=== PATIENT | female | born 1980 ===

== ENCOUNTER 2017-09-26 07:35 | Emergency (ER) | payer OTHER ==
[2017-09-26 07:40] VITALS: BP 117/74; PULSE 63; RESP 20; TEMP 97.9; O2SAT 98
--- NOTE | 2017-09-26 08:15 | C.PDOC ---
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 Patient notes of bleeding and pain. Denies leg pain, weakness or numbness. Time Seen by Provider: 09/26/17 07:46 Chief Complaint (Nursing): Lower Extremity Problem/Injury History Per: Patient History/Exam Limitations: no limitations Onset/Duration Of Symptoms: Sudden Onset (2hrs [employer] GR[employer]ER) Past Medical History Reviewed: Historical Data, Nursing Documentation, Vital Signs Vital Signs: Last Vital Signs Temp 97.9 F 09/26/17 07:37 Pulse 63 09/26/17 07:37 Resp 20 09/26/17 07:37 BP 117/74 09/26/17 07:37 Pulse Ox 98 09/26/17 08:36 Family History: States: No Known Family Hx - Social History Hx Tobacco Use: No Hx Alcohol Use: No Hx Substance Use: No - Immunization History Hx Tetanus Toxoid Vaccination: Yes (UNSURE ?2008) Hx Influenza Vaccination: No Hx Pneumococcal Vaccination: Yes Review Of Systems Except As Marked, All Systems Reviewed And Found Negative. Musculoskeletal: Positive for: Other ((+) Left great toe pain and bleeding.). Negative for: Leg Pain Neurological: Negative for: Weakness, Numbness Physical Exam - Physical Exam Appears: Non-toxic, No Acute Distress Skin: Warm, Dry Head: Atraumatic, Normacephalic Eye(s): bilateral: Normal Inspection Extremity: Normal ROM, No Calf Tenderness, No Deformity, No Swelling, Other ((+ ) Left Great Toe - Dry blood to the nail margin. Nail intact. Tenderness to distal great phalanx.) Neurological/Psych: Oriented x3, Normal Speech, Normal Motor Gait: Steady ED Course And Treatment O2 Sat by Pulse Oximetry: 98 (RA) Pulse Ox Interpretation: Normal - Other Rad X-Ray - Left Great Toe X-Ray: Interpreted by Me, Viewed By Me Interpretation: (-) Fractures. Dislocations. Medical Decision Making Medical Decision Making: PLAN: * X-Ray - Left Great Toe * Motrin PO The patient is ambulatory without assistance and steady gait. Will discharge home. Disposition - Disposition Referrals: [facility] [Outside] Podiatry Clinic [Outside] Disposition: HOME/ ROUTINE Disposition Time: 08:00 Condition: GOOD Additional Instructions: Return if worsened. Instructions: Foot Contusion (ED) Forms: [facility] [employer] (Upper Sorbian), Work Excuse - POA Present On Arrival: None - Clinical Impression Clinical Impression: Toe contusion - PA / AFTERSCHOOL / Resident Statement MD/DO has reviewed & agrees with the documentation as recorded. - Scribe Statement The provider has reviewed the documentation as recorded by the Scribe Sue Deluna All medical record entries made by the Ernestoibe were at my direction and personally dictated by me. I have reviewed the chart and agree that the record accurately reflects my personal performance of the history, physical exam, medical decision making, and the department course for this patient. I have also personally directed, reviewed, and agree with the discharge instructions and disposition.
--- NOTE | 2017-09-26 08:48 | RAD ---
PROCEDURE: Radiographs of the left great toe. TECHNIQUE:: AP radiograph of the left foot, with oblique and lateral view of the left great toe. COMPARISON: None. FINDINGS: BONES: Lateral 1st meta tarsal head spurring. No fracture. No erosions. Probable 1 mm tiny medial 1st metatarsal head subcortical cysts. These appear more distal than typical erosions JOINTS: First metatarsal-phalangeal joint minimal arthrosis SOFT TISSUES: Mild soft tissue swelling -increased density medial to 1st metatarsal head - early bunion formation here inferred OTHER FINDINGS: 6-7 mm accessory navicular bone -developmental variant IMPRESSION: No fracture First metatarsal-phalangeal joint minimal arthrosis 6-7 mm accessory navicular bone -developmental variant
== END 2017-09-26 08:43 | disposition home or self-care (01) ==
LOC: C.ER 07:35
DX: S90.112A Contusion of left great toe without damage to nail, initial encounter (principal); W20.8XXA Other cause of strike by thrown, projected or falling object, initial encounter; Y99.0 Civilian activity done for income or pay

== ENCOUNTER 2018-10-12 19:00 | Emergency (ER) | payer OTHER ==
[2018-10-12 19:07] VITALS: BMI 31.4
[2018-10-12 19:15] VITALS: RESP 18
[2018-10-12 20:30] LABS: BASO # 0.1 K/uL (0.0-0.2); BASO % 0.9 % (0.0-2.0); EOS # 0.2 K/uL (0.0-0.7); EOS % 2.3 % (0.0-4.0); HEMOGLOBIN 11.1 g/dL (11.0-16.0); LYMPH # 2.4 K/uL (1.0-4.3); LYMPH % 33.7 % (20.0-40.0); MEAN CORPUSCULAR HEMOGLOBIN 21.4 pg (27.0-31.0); MEAN PLATELET VOLUME 8.3 fL (7.2-11.7); MONO # 0.9 K/uL (0.0-0.8); MONO % 12.9 % (0.0-10.0); NEUT # 3.6 K/uL (1.8-7.0); NEUT % 50.2 % (50.0-75.0); NRBC % 0.1 % (0.0-2.0); RBC 5.17 Mil/uL (3.80-5.20); RED CELL DISTRIBUTION WIDTH 17.6 % (11.5-14.5); WHITE BLOOD COUNT 7.2 K/uL (4.8-10.8)
[2018-10-12 20:33] LABS: MEAN CELL VOLUME 67.1 fL (81.0-99.0)
[2018-10-12 20:38] LABS: HCG,QUALITATIVE URINE NEGATIVE (NEGATIVE)
[2018-10-12 20:40] LABS: SQUAMOUS EPITHIAL 8 /hpf (0-5); URINE BACTERIA OCC (<OCC); URINE BILIRUBIN NEGATIVE (NEGATIVE); URINE BLOOD NEGATIVE (NEGATIVE); URINE CLARITY Clear (Clear); URINE COLOR Yellow (YELLOW); URINE GLUCOSE (UA) NORMAL (Normal); URINE LEUKOCYTE ESTERASE 3+ Leu/uL (Negative); URINE PROTEIN NEGATIVE (NEGATIVE)
--- NOTE | 2018-10-12 20:40 | C.PDOC ---
History Of Present Illness 38 year old female with no significant PMHx presents to the ED c/o intermittent pressure like chest pain that is radiating to her back that started today at 18:00. Patient reports she has no family history of cardiac disease in her f amily or control use. Patient denies fever, chills, SOB, palpitations, cough, nausea, vomit, diarrhea, abdominal pain, injury, fall, trauma, recent airplane travel. Patient reports symptoms have resolved now. Time Seen by Provider: 10/12/18 20:05 Chief Complaint (Nursing): Chest Pain History Per: Patient History/Exam Limitations: no limitations Onset/Duration Of Symptoms: Hrs (18:00) Current Symptoms Are (Timing): Better Quality: Pressure Recent travel outside of the [place]: No Additional History Per: Patient Past Medical History Reviewed: Historical Data, Nursing Documentation, Vital Signs Vital Signs: Last Vital Signs Temp 98.5 F 10/12/18 19:07 Pulse 65 10/12/18 19:07 Resp 18 10/12/18 19:07 BP 137/84 10/12/18 19:07 Pulse Ox 98 10/12/18 19:07 - Medical History PMH: No Chronic Diseases Surgical History: No Surg Hx Family History: States: Unknown Family Hx - Social History Hx Tobacco Use: No Hx Alcohol Use: No Hx Substance Use: No - Immunization History Hx Tetanus Toxoid Vaccination: No Hx Influenza Vaccination: No Hx Pneumococcal Vaccination: No Review Of Systems Constitutional: Negative for: Fever, Chills Eyes: Negative for: Vision Change Cardiovascular: Positive for: Chest Pain. Negative for: Palpitations Respiratory: Negative for: Cough, Shortness of Breath Gastrointestinal: Negative for: Nausea, Vomiting, Abdominal Pain Skin: Negative for: Rash Neurological: Negative for: Weakness, Numbness, Headache Physical Exam - Physical Exam Appears: Non-toxic, No Acute Distress Skin: Normal Color, Warm, Dry Head: Atraumatic, Normacephalic Eye(s): bilateral: Normal Inspection Neck: Normal ROM, Supple Chest: Symmetrical, No Tenderness Cardiovascular: Rhythm Regular Respiratory: Normal Breath Sounds, No Rales, No Rhonchi, No Wheezing Gastrointestinal/Abdominal: Soft, No Tenderness, No Guarding, No Rebound Extremity: Normal ROM, No Tenderness, No Swelling Neurological/Psych: Oriented x3, Normal Speech, Normal Cognition Gait: Steady ED Course And Treatment - Laboratory Results Result Diagrams: 10/12/18 20:27 10/12/18 20:27 ECG: Interpreted By Me, Viewed By Me ECG Rhythm: Sinus Rhythm ECG Interpretation: Normal Interpretation Of ECG: Normal axis, normal intervals, no acute ST/T wave changes Rate From EC (BPM) O2 Sat by Pulse Oximetry: 98 (ON RA) Pulse Ox Interpretation: Normal Progress Note: Plan: - EKG. - Labs. - CXR. - UA Disposition Counseled Patient/Family Regarding: Studies Performed, Diagnosis, Need For Followup, Rx Given - Disposition Referrals: Duarte Berrios MD [Medical Doctor] - Disposition: HOME/ ROUTINE Disposition Time: 23:05 Condition: STABLE Additional Instructions: FOLLOW UP WITH YOUR DOCTOR IN 1-2 DAYS RETURN TO EMERGENCY ROOM IF YOUR SYMPTOMS WORSEN SEGUIR CON CHICAS [place] EN 1-2 HANNA VUELVA A LA DUY DE EMERGENCIA SI DANIEL SNTOMAS SE COTTO PROBLEMAS Prescriptions: Ibuprofen [Motrin Tab] 600 mg PO Q6 PRN #30 tab PRN Reason: fever/pain Instructions: Chest Pain That Is Not Caused by the Heart (DC) Forms: [employer] (Malay) Print Language: LITHUANIAN - POA Present On Arrival: None - Clinical Impression Clinical Impression: Non-cardiac chest pain - Scribe Statement The provider has reviewed the documentation as recorded by the Scribe Gerald Cain All medical record entries made by the Scribe were at my direction and personally dictated by me. I have reviewed the chart and agree that the record accurately reflects my personal performance of the history, physical exam, medical decision making, and the department course for this patient. I have also personally directed, reviewed, and agree with the discharge instructions and disposition.
[2018-10-12 20:46] LABS: ALB/GLOB RATIO 1.4 (1.0-2.1); ALBUMIN 4.3 g/dL (3.5-5.0); ALT/SGPT 34 U/L (9-52); AST/SGOT 31 U/L (14-36); BLOOD UREA NITROGEN 11 mg/dL (7-17); CALCIUM 8.8 mg/dl (8.6-10.4); GFR NON-AFRICAN AMERICAN > 60
[2018-10-12 22:05] VITALS: BP 105/65; PULSE 56; TEMP 98.2
[2018-10-12 23:00] LABS: CK-MB 1.42 ng/mL (0.0-3.38)
[2018-10-12 23:07] VITALS: O2SAT 98
--- NOTE | 2018-10-13 09:27 | RAD ---
Date of service: 10/12/2018 PROCEDURE: CHEST RADIOGRAPH, 1 VIEW HISTORY: cp COMPARISON: None available. FINDINGS: LUNGS: The lungs are well inflated and clear. PLEURA: No pneumothorax or pleural effusion. CARDIOVASCULAR: The heart is normal in size. No aortic atherosclerotic calcifications present. OSSEOUS STRUCTURES: Within normal limits for the patient's age. VISUALIZED UPPER ABDOMEN: Normal. OTHER FINDINGS: None. IMPRESSION: No active pulmonary disease.
--- NOTE | 2018-10-13 09:46 | CARD ---
APPROVED REPORT Date of service: 10/12/2018 EKG Measurement Heart [id number] <Conclusion> Normal sinus rhythm Minimal voltage criteria for LVH, may be normal variant Borderline ECG
== END 2018-10-12 23:14 | disposition home or self-care (01) ==
LOC: C.ER 19:00
DX: R07.89 Other chest pain (principal)